=== PATIENT | male | born 1965 | race Caucasian/White ===

== ENCOUNTER 2019-06-04 19:04 | Emergency (ER) | payer BC ==
[~2019-06-04] VITALS: Ht 165.1 cm; Wt 90.7 kg
[~2019-06-04 19:04] MED LIST: CHANTIX0.5 MG PO; IBUPROFEN 800800 M1 PO; NEXIUM40 MG PO; NORCO 5-325 TA1 EAC1 PO
[2019-06-04 20:13] LABS: ABSOLUTE BASOPHILS 0.1 thou/uL (0.0-0.2); ABSOLUTE EOSINOPHILS 0.1 thou/uL (0.0-0.7); ABSOLUTE LYMPHOCYTES 2.7 thou/uL (0.8-5.3); ABSOLUTE MONOCYTES 0.5 thou/uL (0.0-1.2); ABSOLUTE NEUTROPHILS 4.1 thou/uL (1.6-8.1); BASOPHILS 0.8 %; EOSINOPHILS 1.3 %; HEMOGLOBIN 13.1 gm/dL (14.0-18.0); LYMPHOCYTES 36.5 %; MCH 30.9 pg (26.0-34.0); MCHC 34.4 g/dL (28.0-37.0); MCV 89.8 fL (80.0-100.0); MONOCYTES 6.2 %; MPV 7.4 fl. (7.2-11.1); NUCLEATED RBCS 0 /100WBC; PLATELET COUNT* 288 thou/uL (150-400); POLYS 55.2 %; RBC 4.23 mil/uL (4.50-6.00); RDW-CV 14.3 % (10.5-14.5); WBC 7.4 thou/uL (4.0-11.0)
[2019-06-04 20:15] LABS: URINE BILIRUBIN NEGATIVE (Negative); URINE BLOOD 3+ (Negative); URINE CLARITY CLEAR; URINE COLOR YELLOW; URINE GLUCOSE-RANDOM NEGATIVE (Negative); URINE KETONES NEGATIVE (Negative); URINE LEUKOCYTES-REFLEX NEGATIVE (Negative); URINE NITRITE-REFLEX NEGATIVE (Negative); URINE PROTEIN NEGATIVE (Negative); URINE SPECIFIC GRAVITY 1.025 (1.005-1.030); URINE UROBILINOGEN 0.2 E.U./dl (0.2-1.0)
[2019-06-04 20:16] LABS: CALCIUM 8.9 mg/dL (8.5-10.1); CREATININE 1.4 mg/dL (0.6-1.3); POTASSIUM 4.3 mmol/L (3.5-5.1)
[2019-06-04 20:21] LABS: ALBUMIN 3.6 g/dL (3.4-5.0); TOTAL BILIRUBIN 0.2 mg/dL (<0.1-1.0); TOTAL PROTEIN 6.7 g/dL (6.4-8.2)
[2019-06-04 20:23] LABS: SQUAMOUS 4-10 Moderate /LPF (0-3)
[2019-06-04 20:25] LABS: BACTERIA-REFLEX None Seen /HPF (None Seen); CASTS None Seen /LPF (None Seen); CRYSTALS None Seen /LPF (None Seen); MUCUS None Seen strn/LPF (None Seen); URINE RBC >20 Many /HPF (0-2); URINE WBC-REFLEX 0-5 Rare /HPF (0-5)
[2019-06-04] MEDS ORDERED: BACTRIM DS TAB1 EACH PO (20:59)
[2019-06-04] MEDS ORDERED: LIDOCAINE VISC100 ML SWISH&SPIT (21:00)
[2019-06-04] MEDS ORDERED: NORCO 5-325 TA1 EAC1 PO (21:00)
[2019-06-04 21:39] VITALS: BP 120/81
== END 2019-06-04 21:39 | disposition home or self-care (01) ==
LOC: M.ERS 19:04
PROVIDERS: Physician Assistant
DX: N12 Tubulo-interstitial nephritis, not specified as acute or chronic (principal); M27.3 Alveolitis of jaws; I10 Essential (primary) hypertension; F41.9 Anxiety disorder, unspecified; N40.0 Benign prostatic hyperplasia without lower urinary tract symptoms